=== PATIENT | male | born 1960 | race Caucasian/White ===

== ENCOUNTER 2016-04-15 16:39 | Emergency (ER) | payer OTHER ==
[~2016-04-15] VITALS: Ht 172.7 cm; Wt 73.5 kg
[~2016-04-15 16:39] MED LIST: ALPRAZOLAM0.5 M3; AZITHROMYCIN250 M1 PO; CRESTOR10 M1 PO; ENALAPRIL MALEA10 M1 PO; HUMALOG100 U/ML SC; PERCOCET 325 MG1 TAB; TERBINAFINE HC250 MG PO; VIAGRA100 M1 PO
--- NOTE | 2016-04-15 16:41 | ED ANIMAL BITE/WOUND CHECK ---
History of Present Illness General Chief Complaint: Suture Removal/Wound Recheck Stated Complaint: STAPLE REMOVAL Source: patient, old records Exam Limitations: no limitations Vital Signs & Intake/Output Vital Signs & Intake/Output Vital Signs Date Time Temp Pulse Resp B/P Pulse O2 O2 Flow FiO2 Ox Delivery Rate 04/15 1642 97.1 64 20 150/77 99 Room Air Allergies Coded Allergies: NO KNOWN ALLERGIES (11/10/14) Reconcile Medications Azithromycin 250 MG TABLET 1 DP PO AD SINUSITIS 2 the first day followed by 1 for days 2-5 Enalapril Maleate 10 MG TABLET 1 TAB PO DAILY UNKNOWN (Reported) Insulin Lispro, Recombinant (Humalog) 100 U/ML WILLY INSULIN PUMP (Reported) Rosuvastatin Calcium (Crestor) 10 MG TABLET 1 TAB PO DAILY CHOLESTEROL ( Reported) Sildenafil Citrate (Viagra) 100 MG TABLET 1 TAB PO DAILY NEEDED SEXUAL ACTIVITY (Reported) 1 hour before sexual activity Terbinafine HCl 250 MG TABLET 1 TAB PO DAILY NAIL FUNGUS (Reported) Triage Nurses Notes Reviewed? yes Onset: Abrupt Duration: day(s): (7), better Timing: recent history Injury Environment: home Severity: mild No Modifying Factors: none Associated Symptoms: denies HPI: 56-year-old male presents for staple removal wound check after requiring 4 efren to his scalp when he fell 7 days ago. He has denied any complications or pain since. There are no modifying factors no discharge no bleeding no rashes to his skin there are no modifying factors or associated symptoms otherwise (TEREZA TAN) Past History Travel History Traveled to [place] past 21 day No Medical History Any Pertinent Medical History? see below for history Neurological: NONE EENT: NONE Cardiovascular: hypertension Respiratory: NONE Gastrointestinal: NONE Hepatic: NONE Renal: NONE Musculoskeletal: NONE Psychiatric: NONE Endocrine: diabetes, PT HAS INSULIN PUMP Blood Disorders: NONE Cancer(s): NONE Tetanus Vaccine: 11/24/14 Surgical History Surgical History: non-contributory Psychosocial History What is your primary language [place] Family History Hx Contributory? No (TEREZA TAN) Review of Systems Review of Systems Constitutional: Reports: see HPI. All Other Systems: Reviewed and Negative Comments Review of systems: See HPI, All other systems negative. Constitutional, no chills no fever, no malaise HEENT: No visual changes no sore throat no congestion, no ear pain Cardiovascular: No chest pain , no palpitation Skin, no jaundice no rashes, no change in skin Respiratory: No dyspnea no cough no sputum GI: No nausea no vomiting, no diarrhea, : No dysuria Muscle skeletal: No joint pain, no back pain, no neck pain, Neurologic: No numbnessno headache Psych: No stress Heme/endocrine: No bruising no bleeding Immunology: No lymphadenopathy, (TEREZA TAN) Physical Exam Physical Exam General Appearance: well developed/nourished, no apparent distress, alert Comments: Well-developed well-nourished patient in no apparent distress. HEENT: [place] times [address] to right parietal scalp laceration there is no surrounding erythema induration or swelling nontender, extraocular motion intact Neck: Supple, FROM Back: FROM Cardiovascular: Regular rate and rhythms no murmurs Respiratory: No respiratory distress. Patient speaking in full complete sentences. Breath sounds clear to auscultation bilaterally: NO W/R/R Extremities: full range of motion Neuro: Alert and oriented x3 Skin: Warm & dry;No appreciable rash on exposed skin Psych: Mood affect normal, normal memory normal judgment. (TEREZA TAN) Progress Differential Diagnosis: abscess, cellulitis Plan of Care: Efren 4 removed by me and there is no wound dehiscence. he tolerated procedure well (TEREZA TAN) Departure Departure Time of Disposition: 1648 Disposition: HOME OR SELF CARE Condition: Stable Clinical Impression Primary Impression: Removal of staple Referrals: DARLING HERRON,CARL Thakkar (PCP/Family) Additional Instructions: Follow-up with your primary care physician or return with any concerns Departure Forms: Customer Survey General Discharge Information (TEREZA TAN) PA/SUPPLY TECH Co-Sign Statement Statement: ED Attending supervision documentation- [] I saw and evaluated the patient. I have also reviewed all the pertinent lab results and diagnostic results. I agree with the findings and the plan of care as documented in the PA's/SUPPLY TECH's documentation. [X] I have reviewed the ED Record and agree with the PA's/SUPPLY TECH's documentation. [] Additions or exceptions (if any) to the PAs/SUPPLY TECH's note and plan are summarized below: [] (ISSA GIBSON DO
[2016-04-15 16:42] VITALS: BP 150/77
== END 2016-04-15 16:57 ==
LOC: ERH 16:39
DX: Z48.02 Encounter for removal of sutures (principal)
CPT/HCPCS: 99281